=== PATIENT | female | born 1940 ===

== ENCOUNTER 2017-05-22 08:52 | Day surgery (SDC) | payer OTHER ==
[2017-05-22] MEDS ORDERED: Lactated Ringer's 500 ML IV ONE (09:15)
[2017-05-22 11:32] VITALS: TEMP 97
[2017-05-22 11:45] VITALS: BP 140/67; PULSE 55; RESP 14; O2SAT 99
== END 2017-05-22 12:00 | disposition home or self-care (01) ==
LOC: H.ENDO 08:52
PROVIDERS: ATTEND Internal Medicine Gastroenterology
DX: R10.13 Epigastric pain (principal); E78.5 Hyperlipidemia, unspecified; I10 Essential (primary) hypertension; M81.0 Age-related osteoporosis without current pathological fracture
CPT/HCPCS: 43239; 88307; J7120